=== PATIENT | male | born 1955 | race Caucasian/White ===

== ENCOUNTER → 2019-08-24 08:11 | Outpatient (BNVA) | payer MEDICARE, MEDICAID, SELFPAY | PROVIDERS: Family Provider Internal Medicine; PCP Internal Medicine; Visit Provider Anesthesiology | DX: G89.29 Other chronic pain (principal); M54.2 Cervicalgia; M25.511 Pain in right shoulder; M25.512 Pain in left shoulder | CPT/HCPCS: 99213 ==

== ENCOUNTER → 2019-09-30 08:23 | Outpatient (BNVA) | payer MEDICARE, MEDICAID, SELFPAY | PROVIDERS: Family Provider Internal Medicine; PCP Internal Medicine; Visit Provider Anesthesiology | DX: M54.2 Cervicalgia (principal) | CPT/HCPCS: 62321; J1040 ==

== ENCOUNTER 2019-12-13 13:12 | Outpatient (CLI) | payer MEDICARE, MEDICAID, SELFPAY ==
--- NOTE | 2019-12-13 13:26 | MR_ITS ---
WS: [id number] MRI LUMBAR SPINE NONCONTRAST TECHNIQUE: Sagittal T1, T2 and STIR imaging. Axial T1 and T2 imaging. CLINICAL INFORMATION: G83.4 Cauda equina syndrome COMPARISON: MRI FINDINGS: Mild lumbar curve. No acute compression. No high-grade central canal stenosis. L1-L2: Mild annular bulging with slight effacement of ventral thecal sac. Mild facet arthropathy. Spi nal canal and foramen are patent. L2-L3: Mild annular bulging. Slight narrowing of the subarticular recess bilaterally. Mild bilateral foraminal narrowing. Mild central canal stenosis. Mild facet arthropathy. L3-L4: Mild annular bulging with slight narrowing of the subarticular recess bilaterally. Slight retr olisthesis. Mild to moderate bilateral foraminal narrowing with encroachment on the exiting L3 nerve roots bilaterally left greater than right. Left foraminal protrusion impinges the exiting left L3 ner ve root. L4-L5: Mild disc bulging eccentric to the right with mild central canal stenosis. Impingement sue ing L5 nerve roots bilaterally. Right foraminal protrusion impinges the exiting right L4 nerve root. Smaller left foraminal protrusion with mild left foraminal narrowing. Moderate facet arthropathy. L5-S1: Mild annular bulging. Left eccentric disc bulging with mild left foraminal narrowing. Right fo ramen is patent. Moderate facet arthropathy. Visualized pelvic bony structures: Normal. Paravertebral soft tissues: Normal. Mild spondylitic changes cervical spine with small disc osteophyte protrusions at C3-C6. MR/MR lumbar spine wo con* [id number] IMPRESSION: 1. Mild lumbar curve. No acute compression. No high-grade central canal stenos is. 2. Mild central canal stenosis L4-5 with annular bulging and slight impingemen t traversing L5 nerve roots bilaterally. Bilateral foraminal protrusions at thi s level impinges the exiting L4 nerve roots right greater than left. 3. Prominent left foraminal protrusion L3-4 impinges the exiting left L3 nerve root. Recommend correlation for left L3 nerve root symptoms. Mild right L3-4 f oraminal narrowing with a small right foraminal protrusion. 4. Mild to moderate facet arthropathy L4-L5 and L5-S1.
== END 2019-12-13 13:13 | disposition home or self-care (01) ==
LOC: RADWPI 13:21
PROVIDERS: Family Provider Internal Medicine; PCP Internal Medicine; Visit Provider Registered Nurse
DX: G83.4 Cauda equina syndrome (principal); M48.061 Spinal stenosis, lumbar region without neurogenic claudication; M51.26 Other intervertebral disc displacement, lumbar region; M47.816 Spondylosis without myelopathy or radiculopathy, lumbar region; M47.817 Spondylosis without myelopathy or radiculopathy, lumbosacral region
CPT/HCPCS: 72148

== ENCOUNTER → 2019-12-29 09:23 | Outpatient (BNVA) | payer MEDICARE, MEDICAID, SELFPAY | PROVIDERS: Family Provider Internal Medicine; PCP Internal Medicine; Visit Provider Anesthesiology | DX: M48.062 Spinal stenosis, lumbar region with neurogenic claudication (principal); M54.16 Radiculopathy, lumbar region; M54.2 Cervicalgia; M48.00 Spinal stenosis, site unspecified; Z79.891 Long term (current) use of opiate analgesic | CPT/HCPCS: 99213 ==

== ENCOUNTER → 2020-01-17 08:24 | Outpatient (BNVA) | payer MEDICARE, MEDICAID, SELFPAY | PROVIDERS: Family Provider Internal Medicine; PCP Internal Medicine; Referring Provider Orthopaedic Surgery; Visit Provider Specialist | DX: M54.16 Radiculopathy, lumbar region (principal); G62.9 Polyneuropathy, unspecified; Z79.52 Long term (current) use of systemic steroids | CPT/HCPCS: 82607; 82746; 83921; 84260; 84443; 85651; 86140; 86431; 95886; 95909; 99202; G0463 ==

== ENCOUNTER → 2020-01-20 10:41 | Outpatient (BNVA) | payer MEDICARE, MEDICAID, SELFPAY | PROVIDERS: Family Provider Internal Medicine; PCP Internal Medicine; Visit Provider Anesthesiology | DX: M54.16 Radiculopathy, lumbar region (principal); M48.062 Spinal stenosis, lumbar region with neurogenic claudication | CPT/HCPCS: 62323; J1040; J3490 ==

== ENCOUNTER → 2020-03-06 10:12 | Outpatient (BNVA) | payer MEDICARE, MEDICAID, SELFPAY | PROVIDERS: Family Provider Internal Medicine; PCP Internal Medicine; Visit Provider Orthopaedic Surgery | DX: Z20.828 Contact with and (suspected) exposure to other viral communicable diseases (principal); Z01.812 Encounter for preprocedural laboratory examination | CPT/HCPCS: 87635 ==

== ENCOUNTER → 2020-03-13 12:41 | Outpatient (BNVA) | payer MEDICARE, MEDICAID, SELFPAY | PROVIDERS: Family Provider Internal Medicine; PCP Internal Medicine; Visit Provider Orthopaedic Surgery | DX: Z20.828 Contact with and (suspected) exposure to other viral communicable diseases (principal); M48.062 Spinal stenosis, lumbar region with neurogenic claudication | CPT/HCPCS: 87635 ==

== ENCOUNTER 2020-03-17 05:40 | Day surgery (SDC) | payer MEDICARE, MEDICAID, SELFPAY ==
[2020-03-16 13:41] VITALS: BMI 26.2
[2020-03-17] VITALS (8 sets, daily range): BP systolic 118–137; BP diastolic 71–93; PULSE 68–79; RESP 14–18; TEMP 36.5–36.6; O2SAT 94–98
--- NOTE | 2020-03-17 | XR_ITS ---
WS: [id number] Lumbar spine, AP and lateral C-arm fluoroscopy views, 03/17/2020 Clinical Data: Decompression L4/L5 L5/s1 Comparison: Lumbar spine lateral, 12/09/2012. Findings: Dr. Garcia examined the lumbar spine at the L4-L5 level. XR/XR lumbar spine 2-3V* [id number] Impression: Dr. Garcia examined L4-L5 level.
--- NOTE | 2020-03-17 | SCC_ITS ---
Procedure Done: 1. L4/5 Laminectomy with partial faccetectomy 2. L5/S1 Laminectomy with partial facetectomy 17.9 seconds of fluoroscopic guidance, for a cumulative dose of 8.71 mGy, was provided to Dr. Garcia by the radiology department. C-arm images of the lumbar spine were saved for the patient's permanent record. [facility]
[2020-03-17] MEDS: sodium chloride 0.9% 1,000 ML 30 ML IV (06:14)
--- NOTE | 2020-03-17 06:29 | ANES.PREANE2 ---
Pre-Anesthetic Assessment Pre-Anesthetic Assessment: Height/Weight: Height 1.91 m Weight 95.254 kg Temp Pulse Resp BP Pulse Ox 97.7 F 72 16 137/93 96 03/17/20 06:05 03/17/20 06:05 03/17/20 06:05 03/17/20 06:05 03/17/20 06:05 Preop Diagnosis: lumbar stensosis Proposed Procedure: Operation Date: 03/17/20 07:00 Proposed Procedures p MIS Decompression L4/5 l5/S1 [id number], [id number](Not Applicable) - Juan Garcia DO Familial anesthetic complications: None Was Beta Oli taken within 24 hours: N/A Last intake: Intake Last Liquid Date 03/16/20 Last Liquid Time 19:30 Last Solid Date 03/16/20 Last Solid Time 19:30 Social: Social History: No alcohol and No tobacco Exam: Pre-Anes Outpt Exam: alert, oriented x 3, clear to auscultation bilaterally and regular rate & rhythm Airway: Cervical ROM: WNL MP: 1 Dentition: Other (missing a few) Pulmonary: Pulmonary: Asthma GI: GI: GERD Musc/skel: Musc/skel: Lower Back Pain Comments: cervical neck pain - gets injections Anesthetic Plan: ASA status: 2 Anesthesia: General Risk of > 500 ml blood loss (7ml/kg in children): No Meds/Allergies Current Medications: Current Medications Generic Name Dose Route Start Last Admin Trade Name Freq PRN Reason Stop Dose Admin Sodium Chloride 1,000 mls @ 30 ml s/hr 03/17/20 06:00 03/17/20 06:14 Sodium Chloride 0.9% IV 03/18/20 05:59 30 mls/hr .Q24H KEAGAN Administration PFSH Anesthesia PFSH: Medical History Chronic pain in right shoulder Encounter for long-term use of opiate analgesic Neck pain Opioid contract exists Family History Mother Neck pain Sister Neck pain Brother Neck pain Low back pain Social History Smoking and tobacco status: never smoked Second hand smoke exposure: No Alcohol intake: never History of recent travel: No Data Anesthesia Cardiac Studies: No Data to Display
--- NOTE | 2020-03-17 06:45 | W.PM.OPSUD ---
Surgery/Procedure H&P Update DATE OF PROCEDURE: March 17, 2020 DATE H&P PERFORMED: 02/28/20 H&P UPDATE INFORMATION: I have reviewed H&P completed within last 30 days and I have examined patient prior to procedure PREOP DIAGNOSIS: lumbar stensosis PLANNED PROCEDURE: Operation Date: 03/17/20 07:00 Proposed Procedures p MIS Decompression L4/5 l5/S1 [id number], [id number](Not Applicable) - Juan Garcia DO
--- NOTE | 2020-03-17 08:06 | SUR.OPER ---
Family Notified Of Patient's Status Via Phone.
--- NOTE | 2020-03-17 08:39 | PM.OP ---
Operative Report Date of procedure: March 17, 2020 Pre-op Diagnosis: lumbar stensosis Post-op diagnosis: same Procedure Done: 1. L4/5 Laminectomy with partial faccetectomy 2. L5/S1 Laminectomy with partial facetectomy Surgeon: Juan Garcia Anesthesia: General Estimated blood loss (mL): 10 Condition: stable Disposition: PACU Procedure: 1. L4/5 Laminectomy with partial faccetectomy 2. L5/S1 Laminectomy with partial facetectomy Patient brought to the operative suite placed in the prone position after undergoing anesthesia all areas impingement well-padded patient was prepped and draped in a sterile fashion. Skin incision made over the L4-5 level was confirmed under C-arm guidance dilators passed to the retractors inserted direct visualization of the L4 lamina's had one with a medial aspect of the O45 facet joint. Laminectomies performed using high-speed bur and Kerrison rongeur and curettes. Medial aspect of facet joints taken down the high-speed bur and Kerrisons. Ligamentum flavum was taken down from L4-L5 ligament was significant thickened. Dustin was taken down the lateral recess was opened up using Kerrison rongeurs. The L5 nerve was opened and the L45 facet was taken down to the pedicle. And then the L45 foramen was opened. The tip was tilted and the contralateral ligamentum flavum and lamina were undermined and taken down. Large curette was brought through the L4-5 foramen bilaterally and the L5 nerve was traced around the L5 pedicle bilaterally felt to be adequate decompressed. Attention was then brought to the L5-S1 level again using C arm dilators were passed tubular tract was docked onto the L5 lamina direct visualization of the L5 lamina and L4-5 facet joint. High-speed bur was used to take down the L5 lamina medial aspect of facet joint and then Kerrison [place] and curettes were used to take down the remaining lamina and partial facetectomy was performed ligamentum flavum was taken down from L5-S1 ligament again was significant thickened dura had good repair but both L4-5 and L5 1 spaces. The L5 and S1 nerves were traced the L5 nerve was traced to the L5 5 S1 foramen and the S1 nerve was traced from the pedicle. Attention was then brought to the table tilted in the ligament flavum was taken down the contralateral side and the large curette was then used to trace the S1 and L5 nerve. Wounds irrigated and wounds closed wit Vicryl and Monocryl suture still dressings applied patient transferred to the PACU in stable condition.
--- NOTE | 2020-03-17 08:55 | SUR.PHASEI ---
PT AWAKES BUT REMAINS DROWSY, VSS PT ORAL AIRWAY OUT GOOD RESP NOTED PT IV TO LT HAND PATENT, PT DISCOURAGED FROM, RUBBING HIS FACE, PT SHAKES HEAD NO TO QUESTIONS OF PAIN , NAUSEA, AND COLD.. PT QUICKLY BACK TO SLEEP
--- NOTE | 2020-03-17 09:01 | SUR.PHASEI ---
PT REMAINS DROWSY BUT KEEPS RUBBING AT FACE AND TAKING OFF MASK PT ON RA FOR COMFORT RESP EVEN AND UNLABORED SATS HELD AT 94%
--- NOTE | 2020-03-17 16:24 | ANE.PACU2 ---
Inpatient post-anesthesia follow up: Airway intact: Yes Vital signs: Temperature 98 F Pulse Rate 68 Respiratory Rate 18 Blood Pressure 131/85 Pulse Oximetry 96 Oxygen Delivery Me thod Room Air Oxygen Flow Rate 8 Fraction of Inspir ed Oxygen Hydration adequate: Yes Nausea and vomiting: No Pain level: 4 Mental status: Baseline
== END 2020-03-17 10:30 | disposition home or self-care (01) ==
PROVIDERS: PCP Internal Medicine; Visit Provider Orthopaedic Surgery
PROC: (CPT 63005; principal; 2020-03-17 07:00)
DX: M48.061 Spinal stenosis, lumbar region without neurogenic claudication (principal); J45.909 Unspecified asthma, uncomplicated; K21.9 Gastro-esophageal reflux disease without esophagitis; Z79.891 Long term (current) use of opiate analgesic; G89.29 Other chronic pain; M25.511 Pain in right shoulder
CPT/HCPCS: 63030; 63035; 12345; 72100; 76000; J0690; J2704; J3010; J3490; J7030

== ENCOUNTER → 2020-03-30 08:23 | Outpatient (BNVA) | payer MEDICARE, MEDICAID, SELFPAY | PROVIDERS: PCP Registered Nurse; Visit Provider Anesthesiology | DX: M48.00 Spinal stenosis, site unspecified (principal); Z79.891 Long term (current) use of opiate analgesic | CPT/HCPCS: 62321; J1040 ==

== ENCOUNTER → 2020-03-31 08:09 | Outpatient (BNVA) | payer MEDICARE, MEDICAID, SELFPAY | PROVIDERS: PCP Registered Nurse; Visit Provider Internal Medicine | DX: E11.9 Type 2 diabetes mellitus without complications (principal); E78.5 Hyperlipidemia, unspecified; K75.81 Nonalcoholic steatohepatitis (NASH) | CPT/HCPCS: 80053; 80061; 85025 ==

== ENCOUNTER 2020-04-06 06:41 | Outpatient (CLI) | payer MEDICARE, MEDICAID, SELFPAY ==
--- NOTE | 2020-04-06 07:15 | MR_ITS ---
WS: [id number] MRI CERVICAL SPINE NONCONTRAST TECHNIQUE: Sagittal T1, T2 and STIR imaging. Axial T2, gradient, and fiesta imaging. CLINICAL INFORMATION: M54.2 - Cervicalgia FINDINGS: Straightening of the normal cervical lordosis. Cord signal is normal. Mild disc bulging worse at C4-C 5 C5-C6 and C6-C7. C2-C3: Normal. C3-C4: Mild disc bulging with slight effacement of ventral thecal sac. Tiny central disc osteophyte p rotrusion. Moderate facet arthropathy worse in the right. Mild right greater than left bony foraminal narrowing. C4-C5: Central disc protrusion with slight contact of the cervical cord. Mild central canal stenosis. Moderate facet arthropathy. Mild bilateral foraminal narrowing. C5-C6: Disc osteophyte complex with endplate ridging. Moderate central canal stenosis. Moderate to se lesley right and moderate left bony foraminal narrowing. Moderate facet arthropathy. C6-C7: Disc osteophyte complex with endplate ridging. Mild central canal stenosis. Moderate to severe bilateral bony foraminal narrowing. C7-T1: No significant disc bulging. Osteophytic ridging. Mild left and no significant right foraminal narrowing Visualized brain stem structures: Normal. Prevertebral soft tissues: Normal. MR/MR cervical spin wo con* [id number] IMPRESSION: 1. Straightening of the normal cervical lordosis. Cord signal is normal. 2. Small central disc protrusion C4-5 with slight contact of the cervical cord and mild central canal stenosis. 3. Disc osteophyte complex with endplate ridging results in moderate central c anal stenosis C5-C6. Mild central canal stenosis C6-C7. 4. Moderate to severe bony foraminal narrowing worse at right C5-C6 and bilate ral C6-C7.
== END 2020-04-06 06:42 | disposition home or self-care (01) ==
PROVIDERS: PCP Registered Nurse; Visit Provider Orthopaedic Surgery
DX: M25.78 Osteophyte, vertebrae (principal); M48.02 Spinal stenosis, cervical region; M50.221 Other cervical disc displacement at C4-C5 level
CPT/HCPCS: 72141

== ENCOUNTER → 2020-06-16 09:41 | Outpatient (BNVA) | payer MEDICARE, MEDICAID, SELFPAY | PROVIDERS: PCP Registered Nurse; Visit Provider Orthopaedic Surgery | DX: Z01.812 Encounter for preprocedural laboratory examination (principal) | CPT/HCPCS: 87635 ==

== ENCOUNTER 2020-06-21 08:33 | Day surgery (SDC) | payer MEDICARE, MEDICAID, SELFPAY ==
[2020-06-08 09:56] VITALS: BMI 26.2
--- NOTE | 2020-06-08 11:49 | ANES.PREANE2 ---
Pre-Anesthetic Assessment Pre-Anesthetic Assessment: Height/Weight: Height 1.91 m Weight 95.254 kg Preop Diagnosis: cervical stenosis with radiculopathy Proposed Procedure: Operation Date: 06/21/20 11:30 Proposed Procedures p ACDF C5/6 6/7 M47.12 [id number](Not Applicable) - Juan Garcia, DO Was Beta Oli taken within 24 hours: N/A Was Clonidine taken within 24 hours: N/A Social: Social History: No alcohol and No tobacco Exam: Pre-Anes Outpt Exam: alert, oriented x 3, clear to auscultation bilaterally and regular rate & rhythm Airway: Submandibular: WNL Cervical ROM: Other (Limited) MP: 2 Additional comments: OK dentition Pulmonary: Pulmonary: Asthma GI: GI: GERD Comments: UC Musc/skel: Musc/skel: Lower Back Pain Neuropsych: Neuropsych: Neuropathy Anesthetic Plan: ASA status: 3 Anesthesia: General Risk of > 500 ml blood loss (7ml/kg in children): No PFSH Anesthesia PFSH: Medical History Chronic pain in right shoulder Encounter for long-term use of opiate analgesic Neck pain Opioid contract exists Family History Mother Neck pain Sister Neck pain Brother Neck pain Low back pain Social History Smoking and tobacco status: never smoked Second hand smoke exposure: No Alcohol intake: never History of recent travel: No Data Anesthesia Cardiac Studies: No Data to Display
[2020-06-21] VITALS (9 sets, daily range): BP systolic 126–141; BP diastolic 69–89; PULSE 69–76; RESP 12–20; TEMP 36.1–36.9; O2SAT 92–98
--- NOTE | 2020-06-21 | XR_ITS ---
WS: [id number] Cervical spine, AP and lateral C-arm fluoroscopy views, 06/21/2020 Clinical Data: ACDF Comparison: Cervical spine, 12/09/2012. Findings: There is anterior cervical disc fusion at C5-C7 with disc spacers at C5-C6 and C6-C7. XR/XR cervical spine 3V* [id number] Impression: Anterior cervical disc fusion from C5 through C7.
--- NOTE | 2020-06-21 | SCC_ITS ---
Procedure Done: 1. Anterior diskectomy C5/6 2. Anterior discectomy C6/7 3. Insertion of cage C5/6 4. Insertion of Cage C6/7 5. Instrumentation with anterior plate from C5-C7 6. Use of allograft 19.6 seconds of fluoroscopic guidance, for a cumulative dose of 2.22 mGy, was provided to Dr. Garcia by the radiology department. C-arm images of the cervical spine were saved for the patient's permanent record. [facility]
[2020-06-21] MEDS: sodium chloride 0.9% 1,000 ML 30 ML IV (09:17)
--- NOTE | 2020-06-21 09:23 | P.ANESUD_ITS ---
Pre-Anesthetic Update Pre-Anesthetic Assessment: Date of Surgery/Procedure: 06/21/20 Preop Kimberly gnosis: cervical stenosis with radiculopathy Proposed Procedure: Operation Date: 06/21/20 10:10 Proposed Procedures p ACDF C5/6 6/7 M47.12 [id number](Not Applicable) - Juan Garcia, DO Any changes to Pre-Anesthetic Assessment?: No Last Intake: Intake Last Liquid Date 06/20/20 Last Liquid Time 21:00 Last Solid Date 06/20/20 Last Solid Time 21:00 Vitals: Temperature 98.4 F 06/21/20 08:54 Temperature Source Temporal Artery S can 06/21/20 08:54 Pulse Rate 74 06/21/20 08:54 Pulse Rhythm 06/21/20 08:54 Pulse Strength 3+ Normal 06/21/20 08:54 Respiratory Rate 18 06/21/20 08:54 Blood Pressure 134/82 06/21/20 08:54 Blood Pressure Ratna n 99 06/21/20 08:54 Pulse Oximetry 95 06/21/20 08:54 Oxygen Delivery Me thod 06/21/20 08:54 Exam: Pre-Anes Outpt Exam: alert, oriented x 3, clear to auscultation bilaterally and regular rate & rhythm Cardiac Studies: No Data to Display
[2020-06-21] MEDS: fentaNYL 50 mcg/mL INJ 2mL IVP (10:10)
--- NOTE | 2020-06-21 11:23 | PM.HP ---
Providers/Chief Complaint Primary Care Provider: ODALYS Allen Chief Complaint: ACDF C5/6 6/7 History of Present Illness Richard Boyer is a 65 year old male history of bilateral upper extre,mity numbness bilatral upper extrmioties. failed conservative treatment Review of Systems Narrative: Const: Denies: fever(s) or chills Card: Denies: chest pain or dyspnea on exertion Resp: Denies: dyspnea or productive cough GI: Denies: abdominal pain, nausea or vomiting Musc: Reports: neck pain Skin/Breast: Denies: changes in skin color or dry skin Neuro: Denies: weakness in extremities Psych: Denies: anxiety Nav/Lymph: Denies: easy bruising or easy bleeding Medications/Allergies Home Medications Medication Instructions Recorded Confirmed Last Taken Type ipratropium bromide 42 mcg (0.06 1 spray INTRANASAL TID #15 ml 05/28/19 06/21/20 1 Day Ago Rx %) nasal spray ~06/20/20 simvastatin 40 mg tablet 40 mg PO DAILY #90 tab 09/30/19 06/21/20 1 Day Ago Rx ~06/20/20 fluticasone 500 mcg-salmeterol 50 1 inh INHALATION BID #60 each 10/12/19 06/08/20 03/16/20 Rx mcg/dose blistr powdr for inhalation albuterol sulfate 90 mcg/actuation 1 inh INHALATION QID PRN #6.7 gm 12/23/19 06/21/20 1 Day Ago Rx aerosol inhaler ~06/20/20 mesalamine 1.2 gram tablet,delayed See Rx Instructions .ROUTE 02/10/20 06/21/20 1 Day Ago Rx release .COMPLEX #360 each ~06/20/20 valacyclovir 1 gram tablet 2,000 mg PO DAILY PRN #10 tab 02/25/20 06/21/20 1 Day Ago Rx ~06/20/20 hydrocodone-acetaminophen 1 - 2 tab PO .Q4-6H #40 tab 03/17/20 06/08/20 Unknown Rx tizanidine 4 mg tablet 4 - 8 mg PO .at bedtime PRN #90 tab 04/16/20 06/21/20 1 Day Ago Rx ~06/20/20 pantoprazole 40 mg tablet,delayed 40 mg PO DAILY #30 tab 05/16/20 06/21/20 1 Day Ago Rx release ~06/20/20 [id number] Bone growth stimulator #1 ea 06/06/20 Unknown Rx diphenoxylate-atropine [Lomotil] tab 06/08/20 1 Day Ago History ~06/20/20 Allergies Allergy/AdvReac Type Severity Reaction Status Date / Time morphine Allergy ADR-Halluci Verified 06/08/20 09:49 nating PFSH Acute PFSH: Medical History Chronic pain in right shoulder Encounter for long-term use of opiate analgesic Neck pain Opioid contract exists Family History Mother Neck pain Sister Neck pain Brother Neck pain Low back pain Social History Smoking and tobacco status: never smoked Second hand smoke exposure: No Alcohol intake: never History of recent travel: No Vitals/I&O/Wt Last Vital Signs Temp 98.4 F 06/21/20 08:54 Pulse 74 06/21/20 08:54 Resp 18 06/21/20 08:54 BP 134/82 06/21/20 08:54 Pulse Ox 95 06/21/20 08:54 Physical Exam Narrative: EXAM NARRATIVE: EXAM NARRATIVE: CONSTITUTIONAL: The patient is normal appearing, well groomed, cooperative and in no apparent distress. GENERAL: Patient in no acute distress. Well nourished. CARDIAC: Regular rate and rhythm. CHEST: Normal inspirator effort, normal respiratory rate. ABDOMEN: Soft and non-tender. SKIN: Clear, warm and intact. NEURO?PSYCH: The patient is alert and oriented to person, place and time. NEUROVASCULAR: Upper Extremity Sensory - SILT. Motor Strength: Shoulder abduction C5: 5/5; Wrist extension C6: 5/5; Elbow extension C7: 5/5; Hand Paver Layer C8: 5/5; Finger abduction T1: 5/5. Radial/ Ulnar/ Median in intact Lower Extremity Sensory - SILT. Motor Strength: Hip flexion L2/3; Ant/inner thigh: 5/5; Hip adduction L2/3: 5/5; Knee extension L4 Lat thigh: 5/5; Toe dorsiflexion L5: 5/5; Ankle dorsiflexion L5/ S1: 5/5; Plantar flexion S1: 5/5. DTR: Triceps 2+; Brachioradialis 2+; Patellar 2+; Achilles 2+. MUSCULOSKELETAL: UPPER EXTREMITIES: The patient had full active ROM in fingers, wrist, elbow, and shoulder. The patient demonstrated ability to fully flex/extend/abduct/adduct fingers, make ok sign, cross 2nd/3rd digits, extend 1st digit fully.. Radial pulse 2+, CR<2 seconds. LOWER EXTREMITIES: Pt has full, active ROM of toes, ankle, knee, and hip. Dorsalis pedis & posterior tibialis pulses 2+, CR<2 seconds. SPINE: Skin warm, dry, intact. A&P Assessment and plan (1) Cervical stenosis of spinal canal: C5/6 And C6/7 ACDF Status: Acute Attestations Medical Necessity Statement*: failed conservative treatment Coding Level of Care Code Acute Director Export for Niranjan Miller Diagnoses Cervical stenosis of spinal canal M48.02
--- NOTE | 2020-06-21 11:26 | W.PM.OPSUD ---
Surgery/Procedure H&P Update DATE OF PROCEDURE: June 21, 2020 DATE H&P PERFORMED: 06/21/20 PREOP DIAGNOSIS: cervical stenosis with radiculopathy PLANNED PROCEDURE: Operation Date: 06/21/20 10:10 Proposed Procedures p ACDF C5/6 6/7 M47.12 [id number](Not Applicable) - Juan Garcia DO
[2020-06-21] MEDS: thrombin 5,000 unit SDV 5000 UNIT XX (12:56)
--- NOTE | 2020-06-21 14:56 | PM.OP ---
Operative Report Date of procedure: June 21, 2020 Pre-op Diagnosis: cervical stenosis with radiculopathy Post-op diagnosis: same Procedure Done: 1. Anterior diskectomy C5/6 2. Anterior discectomy C6/7 3. Insertion of cage C5/6 4. Insertion of Cage C6/7 5. Instrumentation with anterior plate from C5-C7 6. Use of allograft Surgeon: Juan Gacria Anesthesia: General Estimated blood loss (mL): 50 Condition: stable Disposition: PACU Procedure: 1. Anterior diskectomy C5/6 2. Anterior discectomy C6/7 3. Insertion of cage C5/6 4. Insertion of Cage C6/7 5. Instrumentation with anterior plate from C5-C7 6. Use of allograft The patient was taken to the operating room, where he underwent general endotracheal anesthesia without complications. He was then positioned supine on the operating table, and all areas of impingement were well padded. The arms were carefully padded and tucked at his sides. A roll was placed between the shoulder blades.. An x-ray was done to determine the appropriate level for the skin incision. The entire neck was then sterilely prepped and draped in the usual fashion. Neuromonitoring was attached prior to prepping. A transverse skin incision was made and carried down to the platysma muscle. This was then split in line with its fibers. Blunt dissection was carried down medial to the carotid sheath and lateral to the trachea and esophagus until the anterior cervical spine was visualized. A needle was placed into a disc and an x-ray was done to determine its location. The longus colli muscles were then elevated bilaterally with the electrocautery unit. Self-retaining retractors were placed deep to the longus colli muscle. Attention was brought to the C5/6 level that was confirmed on x-ray. A caspar pin was placed into the C5 vertebrae and the C6 vertebrae. The disk space was then distracted. The microscope was then brought in. A radical anterior discectomies were performed at C5/6. This included complete removal of the anterior annulus, nucleus, and posterior annulus. The posterior longitudinal ligament was removed as were the posterior osteophytes. Foraminotomies were then accomplished bilaterally. This was done using a high speed mani, kerrison rongeurs and curretes Once all of this was accomplished, the curved currette was used to check for any residual compression. The central canal was wide open as were the foramen. A high-speed bur was used to remove the cartilaginous endplates above and below the interspace. Bleeding cancellous bone was exposed. The disc space were measured and appropriate size cage were placed sterilely onto the field. Allograft graft was packed into the cages. The cage was then placed and there was good juxtaposition against the bleeding decorticated surfaces and good distraction of each interspace. Attention was brought to the next interspace. Attention was brought to the C6/7 level that was confirmed on x-ray. A caspar pin was placed into the C6 vertebrae and the C7 vertebrae. The disk space was then distracted. The microscope was then brought in. A radical anterior discectomies were performed at C6/7. This included complete removal of the anterior annulus, nucleus, and posterior annulus. The posterior longitudinal ligament was removed as were the posterior osteophytes. Foraminotomies were then accomplished bilaterally. This was done using a high speed mani, kerrison rongeurs and curretes Once all of this was accomplished, the curved currette was used to check for any residual compression. The central canal was wide open as were the foramen. A high-speed bur was used to remove the cartilaginous endplates above and below the interspace. Bleeding cancellous bone was exposed. The disc space were measured and appropriate size cage were placed sterilely onto the field. Allograft graft was packed into the cages. The cage was then placed and there was good juxtaposition against the bleeding decorticated surfaces and good distraction of each interspace. Attention was brought to the next interspace The Talbott pins were removed. Bone wax was used to prevent any bleeding from occurring at the pin sites. The appropriate size anterior cervical locking plate was chosen and bent into gentle lordosis. Two screws were then placed into each of the vertebral bodies at C5,C6,C7. There was excellent purchase. A final x-ray was done confirming good position of the hardware and Cages. The locking screws were then applied, also with excellent purchase. Following a final copious irrigation, there was good hemostasis and no dural leaks. The carotid pulse was strong. The wounds were then closed in layers using 2-0 Vicryl suture for the platysma muscle, 2-0 Vicryl suture for the subcutaneous tissue, and 4-0 monocryl suture in a subcuticular skin closure. Glue was placed followed by application of a sterile dressing. The drain was hooked to bulb suction. A soft collar was applied. The patient was then carefully returned to the supine position on his hospital bed where he was reversed and extubated and taken to the recovery room having tolerated the procedure well.
--- NOTE | 2020-06-21 15:38 | PC.NURSE ---
PT RATING PAIN A 10/10 VERBALLY. PER [facility] RATING 5/5, PT DOZING OFF AND ON.
--- NOTE | 2020-06-21 15:50 | ANE.PACU2 ---
Inpatient post-anesthesia follow up: Airway intact: Yes Vital signs: Temperature 97 F Pulse Rate 71 Respiratory Rate 18 Blood Pressure 130/75 Pulse Oximetry 96 Oxygen Delivery Me thod Room Air Oxygen Flow Rate 6 Fraction of Inspir ed Oxygen Hydration adequate: Yes Nausea and vomiting: No Pain level: 3 Mental status: Baseline
[2020-06-21] MEDS: HYDROcodone-acetaminophen 5-325 mg Tablet 2 TAB PO (15:56)
== END 2020-06-21 16:44 | disposition home or self-care (01) ==
PROVIDERS: PCP Registered Nurse; Visit Provider Orthopaedic Surgery
PROC: 0RB30ZZ Excision of Cervical Vertebral Disc, Open Approach (ICD-10-PCS; CPT 22551; principal; 2020-06-21 10:10)
DX: M48.02 Spinal stenosis, cervical region (principal); G89.29 Other chronic pain; M54.2 Cervicalgia; Z79.891 Long term (current) use of opiate analgesic; M25.511 Pain in right shoulder
CPT/HCPCS: 20930; 22551; 22552; 22845; 22853; 72040; 76000; C1713; C9359; J0330; J0690; J1100; J2405; J2704; J3010; J3490; J7030

== ENCOUNTER 2020-07-27 16:07 | Outpatient (CLI) | payer MEDICARE, MEDICAID, SELFPAY ==
--- NOTE | 2020-07-27 16:45 | MR_ITS ---
WS: [id number] MRI RIGHT SHOULDER NONCONTRAST TECHNIQUE: Sagittal T2, coronal T1, T2 and proton density imaging. Axial gradient PDE imaging. CLINICAL INFORMATION: M25.511 - Pain in right shoulder COMPARISON: None. FINDINGS: Advanced degenerative arthritis AC joint with synovial thickening and edema. Mild downsloping of the acromion with mild narrowing of the subacromial space. Normal supraspinatus. Normal infraspinatus. No rmal teres minor. Normal subscapularis tendon. No significant rotator cuff tears. Normal biceps tendon in the bicipital groove. Subchondral cystic degenerative change along the bicipi yajaira groove medially. Small cyst measures 6 mm. Normal biceps labral anchor. Normal intra-articular bi ceps tendon. Small lobulated ganglion cyst along the suprascapular notch measuring 13 mm. MR/MR shoulder RT wo con* [id number] IMPRESSION: 1. Advanced degenerative arthritis at the AC joint with synovial thickening an d edema. Mild downsloping of the acromion. 2. Rotator cuff is intact. No rotator cuff tears. 3. Normal biceps tendon in the bicipital groove. Small subchondral cyst along the medial rim of the bicipital groove measuring 6 mm. 4. Small lobulated ganglion cyst along the suprascapular notch. No atrophy of the supraspinatus or infraspinatus. 5. No other significant findings.
== END 2020-07-27 16:08 | disposition home or self-care (01) ==
LOC: RADSHAW 16:11
PROVIDERS: PCP Registered Nurse; Visit Provider Orthopaedic Surgery
DX: M25.511 Pain in right shoulder (principal); G89.29 Other chronic pain; M13.811 Other specified arthritis, right shoulder; M67.411 Ganglion, right shoulder
CPT/HCPCS: 73030; 73221

== ENCOUNTER → 2020-08-03 08:00 | Outpatient (BNVA) | payer MEDICARE, MEDICAID, SELFPAY | PROVIDERS: PCP Registered Nurse; Visit Provider Orthopaedic Surgery | DX: M25.511 Pain in right shoulder (principal); G89.29 Other chronic pain; Z48.89 Encounter for other specified surgical aftercare; Z98.1 Arthrodesis status | CPT/HCPCS: 72040 ==

== ENCOUNTER → 2020-11-01 10:57 | Outpatient (BNVA) | payer MEDICARE, MEDICAID, SELFPAY | PROVIDERS: PCP Registered Nurse; Visit Provider Registered Nurse | DX: Z01.89 Encounter for other specified special examinations (principal); R20.0 Anesthesia of skin; R20.2 Paresthesia of skin; R45.84 Anhedonia; E78.5 Hyperlipidemia, unspecified; Z79.899 Other long term (current) drug therapy | CPT/HCPCS: 82607; 82670; 82746; 83001; 83002; 84153; 84402; 84443 ==

== ENCOUNTER → 2020-12-11 11:15 | Outpatient (BNVA) | payer MEDICARE, MEDICAID, SELFPAY | PROVIDERS: PCP Registered Nurse; Visit Provider Nurse Practitioner Family | DX: Z20.822 Contact with and (suspected) exposure to COVID-19 (principal) | CPT/HCPCS: 87426 ==

== ENCOUNTER → 2021-01-04 08:00 | Outpatient (BNVA) | payer MEDICARE, MEDICAID, SELFPAY | PROVIDERS: PCP Registered Nurse; Visit Provider Orthopaedic Surgery | DX: M54.2 Cervicalgia (principal); Z48.89 Encounter for other specified surgical aftercare | CPT/HCPCS: 72040 ==

== ENCOUNTER → 2021-03-26 13:46 | Outpatient (BNVA) | payer MEDICARE, MEDICAID, SELFPAY | PROVIDERS: PCP Registered Nurse; Referring Provider Orthopaedic Surgery; Visit Provider Specialist | DX: Z11.52 Encounter for screening for COVID-19 (principal); Z20.822 Contact with and (suspected) exposure to COVID-19; G62.9 Polyneuropathy, unspecified | CPT/HCPCS: 87426; 99214; 99215 ==

== ENCOUNTER → 2021-04-18 14:47 | Outpatient (BNVA) | payer MEDICARE, MEDICAID, SELFPAY | PROVIDERS: PCP Registered Nurse; Visit Provider Specialist | DX: G62.89 Other specified polyneuropathies (principal) | CPT/HCPCS: 95909 ==

== ENCOUNTER → 2021-06-04 13:56 | Outpatient (BNVA) | payer MEDICARE, MEDICAID, SELFPAY | PROVIDERS: PCP Registered Nurse; Visit Provider Specialist | DX: G62.9 Polyneuropathy, unspecified (principal) | CPT/HCPCS: 99214 ==

== ENCOUNTER 2021-07-05 08:41 | Outpatient (CLI) | payer MEDICARE, MEDICAID, SELFPAY ==
--- NOTE | 2021-07-05 08:50 | CT_ITS ---
WS: [id number] CT ABDOMEN PELVIS TECHNIQUE: Noncontrast CT of the abdomen and pelvis with coronal and sagittal reformatted images. CLINICAL INFORMATION: G62.9 - Polyneuropathy, unspecified COMPARISON: [address] DLP: 1351.[address] scans at [facility] use at least one of these dose optimization techniques: automated e xposure control; mA and/or kV adjustment per patient size (includes targeted exams where dose is matc hed to clinical indication); or iterative reconstruction. FINDINGS: Lung bases are well aerated. Noncontrast liver is normal. Mild hepatomegaly. Cholelithiasis. No gallb ladder wall thickening or pericholecystic fluid. Normal noncontrast spleen. Noncontrast pancreas appe ars normal. Adrenal glands appear normal. Normal GE junction. No hydronephrosis in either kidney. Tin y nonobstructing RIGHT calyceal tip calculi. No hydronephrosis in either kidney. Bladder diverticulum versus ureterocele near the entrance of the RIGHT UVJ. This measures approximate ly 2.4 x 1.7 CM. This appears to be separate from the distal RIGHT ureter but closely abuts the urete r and bladder. Penile implant reservoir in the RIGHT lower anterior pelvis. Penile reservoir appears intact. Compone nts appear intact. Implants appear intact where visualized. Fat-containing umbilical hernia. Enlarged prostate measuring 4.0 x 4.9 cm calcification. Correlation PSA. Thickening of the seminal vesicles bilaterally. Mild bladder wall thickening likely due to bladd er outlet obstruction. No periaortic or pelvic lymphadenopathy. No inguinal lymphadenopathy. CT/CT abdomen pelvis wo con [id number] IMPRESSION: 1. Cholelithiasis. This can be further evaluated with ultrasound. No gallbladd er wall thickening or pericholecystic fluid. 2. Mild hepatomegaly. 3. RIGHT dorsal bladder diverticulum or ureterocele described above. This abut s the RIGHT UVJ and distal RIGHT ureter but appears separate from the ureter. T his can be further evaluated with CT urogram with delayed imaging. 4. No hydronephrosis in either kidney. 5. Penile implant reservoir RIGHT lower pelvis appears intact. Corpus cavernos a components appear intact. 6. Enlarged prostate measuring 4.0 x 4.9 cm with calcification. Recommend juli elation PSA. Mild thickening of the seminal vesicles bilaterally. Suggestion of early bladder wall thickening likely due to bladder outlet obstruction.
== END 2021-07-05 08:42 | disposition home or self-care (01) ==
LOC: RAD 08:45
PROVIDERS: PCP Registered Nurse; Visit Provider Specialist
DX: G62.9 Polyneuropathy, unspecified (principal); R20.2 Paresthesia of skin; K80.20 Calculus of gallbladder without cholecystitis without obstruction; R16.0 Hepatomegaly, not elsewhere classified; N40.0 Benign prostatic hyperplasia without lower urinary tract symptoms
CPT/HCPCS: 74176

== ENCOUNTER → 2021-07-16 09:06 | Outpatient (BNVA) | payer MEDICARE, MEDICAID, SELFPAY | PROVIDERS: PCP Registered Nurse; Visit Provider Registered Nurse | DX: E78.5 Hyperlipidemia, unspecified (principal); G62.9 Polyneuropathy, unspecified; Z00.00 Encounter for general adult medical examination without abnormal findings | CPT/HCPCS: 80053; 80061; 82306; 82607; 85025; G0103 ==

== ENCOUNTER 2021-07-18 08:35 | Outpatient (CLI) | payer MEDICARE, MEDICAID, SELFPAY ==
--- NOTE | 2021-07-18 09:30 | MR_ITS ---
WS: [id number] MRI PELVIS WITHOUT GADOLINIUM ENHANCEMENT. INDICATION: Numbness and pelvis and rectum after penile implant TECHNIQUE: Coronal T1, coronal STIR, axial T1, axial T2, sagittal T2 fat sat FINDINGS: Enlarged prostate measuring 4.0x4.9 cm with calcifications. Thickening of the seminal vesic les bilaterally. Recommend correlation PSA. Mild diffuse bladder wall thickening likely due to bladde r outlet obstruction. Visualized sacrum and coccyx appears normal. Distal sigmoid colon and rectum ar e normal in appearance. Normal normal perirectal fat. Penile implant reservoir RIGHT lower pelvis appears intact. Corpus cavernosa Implant components appea r intact and normal position. Again seen is the suspected dorsal RIGHT bladder diverticulum with a ti ny connecting neck. Diverticulum measures 2.2 x 1.8 cm with small connecting neck measures 3 mm Normal bone marrow signal in the pelvis and sacrum. Normal bone marrow signal in the iliac wings. Mil d degenerative arthritis both hips with mild joint space narrowing. No subchondral edema. Normal pubi c rami. No pelvic or inguinal lymphadenopathy. Minimal disc bulging L4-L5. MR/MR pelvis wo con* [id number] IMPRESSION: 1. Normal distal sigmoid colon and rectum. Normal perirectal fat. 2. Penile implant and implant reservoir in the RIGHT lower quadrant appear int act. 3. Enlarged prostate with diffuse bladder wall thickening likely due to bladde r outlet obstruction. Correlation PSA. 4. Dorsal RIGHT bladder diverticulum measuring 2.2 x 1.8 cm with a tiny narrow neck connection to the bladder. 5. Normal bone marrow signal in the pelvis and sacrum.
== END 2021-07-18 08:36 | disposition home or self-care (01) ==
PROVIDERS: PCP Registered Nurse; Visit Provider Specialist
DX: G58.8 Other specified mononeuropathies (principal); R20.0 Anesthesia of skin; Z96.0 Presence of urogenital implants; N40.0 Benign prostatic hyperplasia without lower urinary tract symptoms; N32.3 Diverticulum of bladder
CPT/HCPCS: 72195

== ENCOUNTER → 2021-08-29 07:39 | Outpatient (BNVA) | payer MEDICARE, MEDICAID, SELFPAY | PROVIDERS: PCP Registered Nurse; Visit Provider Orthopaedic Surgery | DX: M19.011 Primary osteoarthritis, right shoulder (principal); M67.411 Ganglion, right shoulder | CPT/HCPCS: 99213 ==

== ENCOUNTER → 2021-11-14 12:29 | Outpatient (BNVA) | payer MEDICARE, MEDICAID, SELFPAY | PROVIDERS: PCP Registered Nurse; Visit Provider Podiatrist Foot & Ankle Surgery | DX: M72.2 Plantar fascial fibromatosis (principal); M54.16 Radiculopathy, lumbar region | CPT/HCPCS: 73630; 99203 ==

== ENCOUNTER → 2021-11-15 10:10 | Outpatient (BNVA) | payer MEDICARE, MEDICAID, SELFPAY | PROVIDERS: PCP Registered Nurse; Visit Provider Orthopaedic Surgery | DX: M48.062 Spinal stenosis, lumbar region with neurogenic claudication (principal); Z98.1 Arthrodesis status | CPT/HCPCS: 99214 ==

== ENCOUNTER → 2021-12-05 09:43 | Outpatient (BNVA) | payer MEDICARE, MEDICAID, SELFPAY | PROVIDERS: PCP Registered Nurse; Visit Provider Specialist | DX: G62.9 Polyneuropathy, unspecified (principal); G58.8 Other specified mononeuropathies; M43.26 Fusion of spine, lumbar region | CPT/HCPCS: 99214 ==

== ENCOUNTER 2021-12-28 11:05 | Outpatient (CLI) | payer MEDICARE, MEDICAID, SELFPAY ==
--- NOTE | 2021-12-28 11:45 | MR_ITS ---
WS: [id number] MRI BRAIN WITHOUT CONTRAST HISTORY: M54.16 - Radiculopathy, lumbar region COMPARISON: None available. TECHNIQUE: Diffusion imaging, multiplanar T1, T2 and FLAIR imaging obtained. No evidence for acute infarct or hemorrhage. Holliday-white matter differentiation is normal. Significant progression of T2 and FLAIR signal abnormality throughout the white matter beginning at t he vertex and extending around the ventricles. Numerous subcortical and periventricular white matter lesions. Confluent white matter disease surrounding the occipital horns. No infarct. Ventricles and extra-axial spaces are normal. No inferior displacement of cerebellar tonsils. The sella turcica and pituitary gland are unremarkabl e. Dural venous sinuses and eagle of [place] demonstrate no abnormality on this unenhanced studies. Paranasal sinuses: Mild ethmoid air cell disease. No air-fluid levels. Mild mucoperiosteal thickening in the LEFT maxillary sinus. Mastoid air cells: Normal. Calvarium and scalp: Intact. MR/MR head wo con* [id number] IMPRESSION: 1. No acute infarct or hemorrhage. 2. Significant progression of T2 and FLAIR signal hyperintensities likely from small vessel ischemic disease throughout the white matter since 05/06/2014. Add itional etiologies are to consider are vasculitis, hypertension, diabetes and d emyelination although thought less likely. 3. No interval infarct.
== END 2021-12-28 11:06 | disposition home or self-care (01) ==
LOC: RAD 11:08
PROVIDERS: PCP Registered Nurse; Visit Provider Specialist
DX: M54.16 Radiculopathy, lumbar region (principal)
CPT/HCPCS: 70551

== ENCOUNTER 2021-12-28 11:05 | Outpatient (CLI) | payer MEDICARE, MEDICAID, SELFPAY ==
--- NOTE | 2021-12-28 13:00 | MR_ITS ---
WS: [id number] MRI CERVICAL SPINE NONCONTRAST HISTORY: numbness, tingling, pain COMPARISON: 04/06/2020 Technique: Multiplanar, multisequence noncontrast imaging of the cervical spine. New since the prior examination is an anterior cervical fusion at C5-C7. Mild straightening of the no rmal cervical lordosis with reversal at C5-6. Signal within the cervical cord is normal. Visualized posterior fossa is unremarkable. Craniocervical junction, C1 and C2 relationship, odontoid process and soft tissues are normal. C2-C3: Normal. C3-C4: Small central disc protrusion. Mild annular disc bulging. Mild facet joint arthritis greatest on the RIGHT. Very mild bilateral foraminal narrowing due to osteophyte disease. C4-C5: Diffuse annular disc bulging with a moderate central disc protrusion. Bilateral facet joint ar thritis. Disc contacts but does not displace the ventral cervical cord. Mild central and bilateral fo raminal stenosis. C5-C6: Diffuse osteophytic ridging encroaches upon the ventral thecal sac and into the foramina. Mild central stenosis with moderate foraminal stenosis. C6-C7: Mild osteophytic ridging. Small osteophytes project into the foramina bilaterally. Very mild c entral stenosis with moderate foraminal stenosis. Mild facet disease. C7-T1: Normal. Paraspinal soft tissue are normal. MR/MR cervical spin wo con* [id number] IMPRESSION: 1. Interval anterior cervical fusion from C5 to C7 since 04/06/2020. 2. Moderate central disc protrusion at C4-5 contacts but does not deform the v entral thecal sac. Mild central and bilateral foraminal stenosis. 3. Mild central and moderate foraminal stenosis at C5-6 and C6-7 due to osteop hytic ridging and facet disease. 4. Mild foraminal narrowing at C3-4 with a central disc protrusion, unchanged.
== END 2021-12-28 11:06 | disposition home or self-care (01) ==
LOC: RAD 11:08
PROVIDERS: PCP Registered Nurse; Visit Provider Orthopaedic Surgery
DX: R20.0 Anesthesia of skin (principal); R20.2 Paresthesia of skin; Z98.1 Arthrodesis status; M50.221 Other cervical disc displacement at C4-C5 level; M50.21 Other cervical disc displacement, high cervical region; M48.02 Spinal stenosis, cervical region; M25.78 Osteophyte, vertebrae; M54.16 Radiculopathy, lumbar region
CPT/HCPCS: 70551; 72141; 72146; 72148

== ENCOUNTER 2021-12-28 11:05 | Outpatient (CLI) | payer MEDICARE, MEDICAID, SELFPAY ==
--- NOTE | 2021-12-28 14:30 | MR_ITS ---
WS: [id number] MRI LUMBAR SPINE NONCONTRAST. HISTORY: post op/back pain/numbness COMPARISON: 12/13/2019 TECHNIQUE: Sagittal and axial multisequence imaging is submitted. Normal posterior lumbar alignment. No marrow edema or fracture. Mild disc space narrowing and desiccation at L5-S1. No fractures. Conus terminates normally at L1-2 disc level. L1-L2: Mild bilateral facet joint arthritis and foraminal narrowing. L2-L3: Mild annular disc bulge. Mild narrowing of the subarticular recesses and foramina predominantl y due to facet and ligamentum flavum arthritis. Small amount of fluid in the facet joints. Mild centr al and foraminal stenosis. L3-L4: Mild osteophytic ridging and annular disc bulging. Moderate ligamentum flavum and facet arthri tis. Mild central stenosis. Moderate bilateral subarticular recess and foraminal stenosis. Encroachme nt upon the exiting L3 nerve roots. L4-L5: Mild annular disc bulging and osteophytic ridging. Ligamentum flavum and facet disease is mode rate. Small central disc protrusion. Moderate central canal stenosis. Moderate to severe bilateral fo raminal stenosis. Greater stenosis involving the LEFT foramen with contact on both the L4 and L5 nerv e roots. Complete effacement of fat within the LEFT foramen. L5-S1: Mild disc bulging. Mild encroachment upon the S1 nerve roots but no displacement. Mild bilater al foraminal stenosis. Paravertebral soft tissues are normal. MR/MR lumbar spine wo con* [id number] IMPRESSION: 1. Multilevel facet and ligamentum flavum arthritis. Mild progression since . 2. Moderate central stenosis at L4-5 with a central disc protrusion. 3. Moderate to severe bilateral foraminal stenosis at L4-5, greatest on the LE FT with complete effacement of fat in the LEFT foramen. Most significant contac t on the LEFT L4 and L5 nerve roots. 4. Mild central and foraminal stenosis at L2-3. 5. Moderate bilateral subarticular recess and foraminal stenosis at L3-4. Most significant encroachment upon the exiting L3 nerve roots. 6. Mild bilateral foraminal stenosis L5-S1.
== END 2021-12-28 11:06 | disposition home or self-care (01) ==
LOC: RAD 11:08
PROVIDERS: PCP Registered Nurse; Visit Provider Orthopaedic Surgery
DX: M48.062 Spinal stenosis, lumbar region with neurogenic claudication (principal); M54.16 Radiculopathy, lumbar region; Z98.890 Other specified postprocedural states; R20.0 Anesthesia of skin; M47.896 Other spondylosis, lumbar region; M48.061 Spinal stenosis, lumbar region without neurogenic claudication; M48.07 Spinal stenosis, lumbosacral region; M51.26 Other intervertebral disc displacement, lumbar region
CPT/HCPCS: 72148

== ENCOUNTER 2021-12-28 11:05 | Outpatient (CLI) | payer MEDICARE, MEDICAID, SELFPAY ==
--- NOTE | 2021-12-28 13:45 | MR_ITS ---
WS: [id number] MRI THORACIC SPINE noncontrast HISTORY: back pain/numbness COMPARISON: None available. TECHNIQUE: Multiplanar sequences are performed in sagittal and axial planes. Mild curvature thoracic spine with normal posterior alignment. Disc spaces are mildly narrowed. No ma rrow edema or fracture. Signal within the cord is normal. T1-2: Mild foraminal narrowing. T2-3: Mild bilateral foraminal narrowing and facet arthritis. T3-4: Facet joint arthritis resulting in moderate bilateral foraminal stenosis. No central stenosis. T4-5: Moderate facet joint arthritis and foraminal stenosis. T5-6: Mild facet arthritis and foraminal stenosis. T6-7: Moderate facet joint arthritis and bilateral foraminal stenosis. T7-8: Bilateral foraminal stenosis and mild facet arthritis. T8-9: Moderate to severe bilateral foraminal stenosis and facet arthritis. T9-10: Moderate to severe bilateral foraminal stenosis and facet arthritis. T10-11: Mild bilateral facet arthritis and stenosis. T11-12: Normal. Paravertebral soft tissues are negative. MR/MR thoracic spin wo con* [id number] IMPRESSION: 1. No significant central canal stenosis or disc protrusions. 2. No thoracic spine fracture. 3. Multilevel facet joint arthritis and foraminal narrowing as above. Most sig nificant foraminal stenosis at T6-7, T8-9 and T10-11.
== END 2021-12-28 11:06 | disposition home or self-care (01) ==
LOC: RAD 11:08
PROVIDERS: PCP Registered Nurse; Visit Provider Orthopaedic Surgery
DX: M54.6 Pain in thoracic spine (principal); R20.0 Anesthesia of skin; M48.04 Spinal stenosis, thoracic region; M47.814 Spondylosis without myelopathy or radiculopathy, thoracic region; M48.062 Spinal stenosis, lumbar region with neurogenic claudication; M54.16 Radiculopathy, lumbar region; Z98.890 Other specified postprocedural states; M47.896 Other spondylosis, lumbar region; M48.061 Spinal stenosis, lumbar region without neurogenic claudication; M48.07 Spinal stenosis, lumbosacral region; M51.26 Other intervertebral disc displacement, lumbar region
CPT/HCPCS: 72146

== ENCOUNTER 2021-12-31 09:05 | Day surgery (SDC) | payer MEDICARE, MEDICAID, SELFPAY ==
[2021-12-27 12:19] VITALS: BMI 26.2
--- NOTE | 2021-12-31 07:48 | W.PM.OPSFHP ---
Same Day Surgery H&P Indication for Procedure/HPI DATE OF PROCEDURE: December 31, 2021 CHIEF COMPLAINT/INDICATIONFOR SURGICAL PROCEDURE: Dysphagia and UC PREOP DIAGNOSIS: cervical stenosis with radiculopathy PLANNED PROCEDURE: Operation Date: 12/31/21 11:00 Proposed Procedures p Colonoscopy 39901 Z12.11(Not Applicable) - Crow Knowles MD Medications/Allergies* Allergies/Adverse Reactions Allergy/AdvReac Type Severity Reaction Status Date / Time morphine Allergy ADR-Halluci Verified 12/05/21 10:06 nating Pertinent History/Comorbid Conditions* Medical History (Updated 12/05/21 @ 18:19 by Kaya Avila MD) Asthma Chronic pain in right shoulder Colitis Encounter for long-term use of opiate analgesic Encounter for narcotic contract discussion Neck pain Opioid contract exists Surgical History (Updated 11/02/20 @ 12:07 by Apurva Blas DO) History of back surgery History of colonoscopy History of neck surgery History of penile implant History of vasectomy Family History (Updated 06/09/19 @ 09:12 by Delmi Tanner RN) Low back pain Brother Neck pain Mother Sister Brother Social History Smoking and tobacco status: never smoked Second hand smoke exposure: No Alcohol intake: never History of recent travel: No Pertinent Exam Findings alert, oriented x 3, clear to auscultation bilaterally, regular rate & rhythm, operative site marked and procedure specific exam findings Recommendations Surgery/Procedure today Coding Level of Care Code Acute 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
[2021-12-31 09:42] VITALS: BP 135/83; PULSE 67; RESP 18; TEMP 36.2; O2SAT 96
[2021-12-31] MEDS: sodium chloride 0.9% 1,000 ML 30 ML IV (09:50)
--- NOTE | 2021-12-31 09:58 | ANES.PREANE2 ---
Pre-Anesthetic Assessment Height/Weight: Height 1.91 m Weight 95.254 kg Temp Pulse Resp BP Pulse Ox O2 Del Method 97.2 F L 67 18 135/83 96 12/31/21 09:42 12/31/21 09:42 12/31/21 09:42 12/31/21 09:42 12/31/21 09:42 12/31/21 09:42 Preop Diagnosis: UC and Dysphagia Operation Date: 12/31/21 11:00 Proposed Procedures p Colonoscopy 80445 Z12.11 egd w/bougie [id number] K51.30,R13.10(Not Applicable) - Crow Knowles MD s EGD Dilation W/ Bougie(Not Applicable) - Crow Knowles MD Familial anesthetic complications: none Was Beta Oli taken within 24 hours: N/A Was Clonidine taken within 24 hours: N/A Last intake: Intake Last Liquid Date 12/30/21 Last Liquid Time 18:00 Last Solid Date 12/29/21 Last Solid Time 18:00 Last Intake: 18:00 Social No alcohol and No tobacco Exam alert, oriented x 3, clear to auscultation bilaterally and regular rate & rhythm Airway Submandibular: within normal limits Cervical ROM: within normal limits Mallampati: Class I Dentition: full Pulmonary Asthma (seasonal) CV/HEM None reported None reported Hepatic None reported GI Gastroesophageal Reflux Disease Metabolic None reported Musc/skel Lower Back Pain and Osteoarthritis/DJD Neuropsych None reported Anesthetic Plan ASA status: 2 Anesthesia: MAC Risk of > 500 ml blood loss (7ml/kg in children): No Medications/Allergies Home Medications Medication Instructions Recorded Confirmed Last Taken Type fluticasone 500 mcg-salmeterol 50 1 inh inhalation BID #60 ea 07/13/20 12/27/21 Unknown Rx mcg/dose blistr powdr for inhalation (Advair Diskus) valacyclovir 1 gram tablet 2,000 mg PO DAILY PRN herpes #10 06/11/21 12/27/21 Unknown Rx (Valtrex) tabs diphenoxylate-atropine 2.5 1 tab PO BID PRN diarrhea #60 tabs 07/12/21 12/27/21 Unknown Rx mg-0.025 mg tablet ipratropium bromide 42 mcg (0.06 1 spray intranasal TID #15 mL 07/23/21 12/27/21 Unknown Rx %) nasal spray tizanidine 4 mg tablet 4 - 8 mg PO .at bedtime PRN muscle 09/11/21 12/27/21 Unknown Rx spasticity #60 tabs simvastatin 40 mg tablet 40 mg PO DAILY #90 tabs 10/09/21 12/27/21 Unknown Rx pantoprazole 40 mg tablet,delayed 40 mg PO DAILY #90 tabs 11/08/21 12/27/21 Unknown Rx release albuterol sulfate 90 mcg/actuation 1 inh inhalation QID PRN shortness 11/29/21 12/27/21 Unknown Rx aerosol inhaler of breath or wheezing #6.7 grams Allergies Allergy/AdvReac Type Severity Reaction Status Date / Time morphine Allergy ADR-Halluci Verified 12/05/21 10:06 nating Current Medications Generic Name Dose Route Start Last Admin Trade Name Freq PRN Reason Stop Dose Admin Sodium Chloride 1,000 mls @ 30 mls/hr 12/31/21 09:00 12/31/21 09:50 Sodium Chloride 0.9% IV 30 mls/hr .Q24H KEAGAN Administration PFSH Anesthesia Medical History Asthma Chronic pain in right shoulder Colitis Encounter for long-term use of opiate analgesic Encounter for narcotic contract discussion Neck pain Opioid contract exists Surgical History History of back surgery History of colonoscopy History of neck surgery History of penile implant History of vasectomy Family History Mother Neck pain Sister Neck pain Brother Neck pain Low back pain Social History Smoking and tobacco status: never smoked Second hand smoke exposure: No Alcohol intake: never History of recent travel: No Data Anesthesia Cardiac Studies: No Data to Display
[2021-12-31 11:07] VITALS: BP 96/59; PULSE 62; RESP 18; TEMP 36.1; O2SAT 93
[2021-12-31 11:15] VITALS: BP 115/74; PULSE 65; RESP 18; O2SAT 94
--- NOTE | 2021-12-31 14:49 | ANE.PACU2 ---
Inpatient post-anesthesia follow up: Airway intact: Yes Vital signs: Temperature 97.0 F Pulse Rate 65 Respiratory Rate 18 Blood Pressure 115/74 Pulse Oximetry 94 Oxygen Delivery Me thod Room Air Oxygen Flow Rate Fraction of Inspir ed Oxygen Hydration adequate: Yes Nausea and vomiting: No Pain level: 1 Mental status: Baseline
[2022-01-01 14:08] LABS: H. Pylori / CLO Test Negative
== END 2021-12-31 11:40 | disposition home or self-care (01) ==
PROVIDERS: PCP Registered Nurse; Visit Provider Internal Medicine
PROC: 0DJD8ZZ Inspection of Lower Intestinal Tract, Via Natural or Artificial Opening Endoscopic (ICD-10-PCS; CPT 45378; principal; 2021-12-31 11:00)
DX: Z12.11 Encounter for screening for malignant neoplasm of colon (principal); K29.50 Unspecified chronic gastritis without bleeding; K21.9 Gastro-esophageal reflux disease without esophagitis; K51.90 Ulcerative colitis, unspecified, without complications
CPT/HCPCS: 43239; 45380; 87077; 88305; J2704; J7030

== ENCOUNTER → 2022-01-22 10:58 | Outpatient (BNVA) | payer MEDICARE, MEDICAID, SELFPAY | PROVIDERS: PCP Registered Nurse; Visit Provider Orthopaedic Surgery | DX: M54.2 Cervicalgia (principal); M54.16 Radiculopathy, lumbar region; R20.2 Paresthesia of skin; Z98.1 Arthrodesis status | CPT/HCPCS: 99213 ==

== ENCOUNTER → 2022-03-20 10:07 | Outpatient (BNVA) | payer MEDICARE, MEDICAID, SELFPAY | PROVIDERS: PCP Registered Nurse; Visit Provider Specialist | DX: M54.16 Radiculopathy, lumbar region (principal); G37.9 Demyelinating disease of central nervous system, unspecified | CPT/HCPCS: 99214 ==

== ENCOUNTER → 2022-03-21 07:41 | Outpatient (BNVA) | payer MEDICARE, MEDICAID, SELFPAY | PROVIDERS: PCP Registered Nurse; Visit Provider Specialist | DX: G37.9 Demyelinating disease of central nervous system, unspecified (principal) | CPT/HCPCS: 62270; 82945; 84157; 86592; 87070; 87075; 87205; 87327; 89050; 99212 ==

== ENCOUNTER → 2022-04-16 10:40 | Outpatient (BNVA) | payer MEDICARE, MEDICAID, SELFPAY | PROVIDERS: PCP Registered Nurse; Visit Provider Specialist | DX: G37.9 Demyelinating disease of central nervous system, unspecified (principal); M47.9 Spondylosis, unspecified | CPT/HCPCS: 99214 ==

== ENCOUNTER → 2022-04-23 07:38 | Outpatient (BNVA) | payer MEDICARE, MEDICAID, SELFPAY | PROVIDERS: PCP Registered Nurse; Visit Provider Specialist | DX: G37.9 Demyelinating disease of central nervous system, unspecified (principal); G62.9 Polyneuropathy, unspecified; K51.30 Ulcerative (chronic) rectosigmoiditis without complications; G43.019 Migraine without aura, intractable, without status migrainosus; R10.2 Pelvic and perineal pain | CPT/HCPCS: 99214 ==

== ENCOUNTER 2022-05-06 08:29 | Outpatient (RCR) | payer MEDICARE, MEDICAID, SELFPAY ==
[2022-04-17 10:20] VITALS: BP 149/80; PULSE 75; RESP 18; TEMP 36.4; O2SAT 97
--- NOTE | 2022-04-17 10:35 | PC.NURSE ---
Pt to receive Solumedrol 1 gm IV x 5 days and then weekly x 4 weeks. Pt states he will be going out of town May [address] Avila notified. Orders received to give 2 doses of Solumedrol the week of prior to patient leaving on trip.
[2022-04-18 11:25] VITALS: BP 127/92; PULSE 82; RESP 18; TEMP 36.8; O2SAT 98
[2022-04-19 10:57] VITALS: BP 138/80; PULSE 82; RESP 18; TEMP 36.7; O2SAT 94
[2022-04-20 10:07] VITALS: BP 133/77; PULSE 77; RESP 18; TEMP 36.6; O2SAT 96
[2022-04-21 09:50] VITALS: BP 158/94; PULSE 71; RESP 16; TEMP 36.7; O2SAT 95
[2022-04-24 11:56] VITALS: BP 122/81; PULSE 73; RESP 18; TEMP 36.6; O2SAT 94
[2022-05-01 10:00] VITALS: BP 148/78; PULSE 81; RESP 18; TEMP 36.7; O2SAT 97
[2022-05-06 08:41] VITALS: BP 139/83; PULSE 79; RESP 18; TEMP 36.7; O2SAT 97
== END 2022-05-07 23:59 | disposition home or self-care (01) ==
LOC: GILAB 08:29
PROVIDERS: PCP Registered Nurse; Visit Provider Specialist
DX: G35 Multiple sclerosis (principal); M48.062 Spinal stenosis, lumbar region with neurogenic claudication; M54.16 Radiculopathy, lumbar region; M19.011 Primary osteoarthritis, right shoulder; M48.00 Spinal stenosis, site unspecified; M54.2 Cervicalgia; M79.601 Pain in right arm; M79.602 Pain in left arm; M79.604 Pain in right leg; M79.605 Pain in left leg
CPT/HCPCS: 80061; 96365; 99205; J2930; J7050

== ENCOUNTER 2022-05-10 08:35 | Outpatient (RCR) | payer MEDICARE, MEDICAID, SELFPAY ==
[2022-05-10 08:49] VITALS: BP 166/87; PULSE 73; RESP 18; TEMP 36.5; O2SAT 96
== END 2022-06-07 23:59 | disposition home or self-care (01) ==
LOC: GILAB 08:35
PROVIDERS: PCP Registered Nurse; Visit Provider Specialist
DX: M48.062 Spinal stenosis, lumbar region with neurogenic claudication (principal); M54.16 Radiculopathy, lumbar region; M19.011 Primary osteoarthritis, right shoulder; M48.00 Spinal stenosis, site unspecified; M54.2 Cervicalgia; G35 Multiple sclerosis; M79.601 Pain in right arm; M79.602 Pain in left arm; M79.604 Pain in right leg; M79.605 Pain in left leg
CPT/HCPCS: 96365; J2930; J7050

== ENCOUNTER → 2022-05-30 08:33 | Outpatient (BNVA) | payer MEDICARE, MEDICAID, SELFPAY | PROVIDERS: PCP Registered Nurse; Visit Provider Registered Nurse | DX: R35.0 Frequency of micturition (principal); G35 Multiple sclerosis; R53.83 Other fatigue; Z12.5 Encounter for screening for malignant neoplasm of prostate; K51.30 Ulcerative (chronic) rectosigmoiditis without complications | CPT/HCPCS: 80053; 81000; 82306; G0103 ==

== ENCOUNTER → 2022-06-17 10:41 | Outpatient (BNVA) | payer MEDICARE, MEDICAID, SELFPAY | PROVIDERS: PCP Registered Nurse; Visit Provider Anesthesiology Pain Medicine | DX: M48.062 Spinal stenosis, lumbar region with neurogenic claudication (principal); M54.16 Radiculopathy, lumbar region; M54.2 Cervicalgia; M19.011 Primary osteoarthritis, right shoulder; G35 Multiple sclerosis | CPT/HCPCS: 99213; 99214 ==

== ENCOUNTER 2022-06-27 12:22 | Outpatient (CLI) | payer MEDICARE, MEDICAID, SELFPAY ==
--- NOTE | 2022-06-27 13:45 | MR_ITS ---
WS: [email or web address] MRI HEAD WITH CONTRAST TECHNIQUE: Sagittal T1, T2 axial, T2 axial FLAIR, axial susceptibility weighted imaging, axial diffus ion weighted images, and coronal T2 images were obtained. Pre and post-T1 axial and post T1 coronal i mages. ADC and FSPGR images. CLINICAL INFORMATION: G35 - Multiple sclerosis COMPARISON: MRI December 28, 2021 FINDINGS: No evidence of restricted diffusion to suggest acute ischemia. Ventricular system and basilar cistern s are patent. Moderate patchy supratentorial periventricular white matter changes not significantly c hanged compared to December 28, 2021. Mild parenchymal volume loss. No hemosiderin on susceptibly weig hted images. Mild symmetric atrophy temporal lobes and hippocampal formations. No significant corpus callosal atrophy. Normal posterior fossa. Normal vascular flow voids skull base. No extra-axial fluid collections. No m ass or mass effect. Mild mucosal thickening in the ethmoid air cells and paranasal sinuses. Mastoid a ir cells well aerated. Normal posterior nasopharynx. Normal parapharyngeal fat. Normal optic chiasm a nd pituitary infundibulum. No abnormal gadolinium enhancement. Normal optic chiasm and pituitary infu ndibulum. No enhancing intracranial lesions to indicate active demyelinating disease. Normal visualiz ed dural venous sinuses. MR/MR head wo/w con [id number] IMPRESSION: 1. No evidence of restricted diffusion to suggest acute ischemia. 2. Moderate patchy supratentorial white matter changes stable compared to Octo 2021. This is nonspecific in a patient this age but can be seen with hy pertension, diabetes, small vessel disease, and demyelinating disease. 3. Mild parenchymal volume loss. 4. No abnormal intracranial enhancement. 5. No hemosiderin on susceptibly weighted images.
[2022-06-27] MEDS: gadobenate dimeglumine 20 mL vial IV (14:03)
== END 2022-06-27 12:23 | disposition home or self-care (01) ==
LOC: RAD 12:24
PROVIDERS: PCP Registered Nurse; Visit Provider Specialist
DX: G35 Multiple sclerosis (principal)
CPT/HCPCS: 70553; A9577

== ENCOUNTER → 2022-08-28 10:07 | Outpatient (BNVA) | payer MEDICARE, MEDICAID, SELFPAY | PROVIDERS: PCP Registered Nurse; Visit Provider Registered Nurse | DX: G35 Multiple sclerosis (principal); K51.30 Ulcerative (chronic) rectosigmoiditis without complications | CPT/HCPCS: 82306; 82607 ==

== ENCOUNTER → 2022-09-12 07:31 | Outpatient (BNVA) | payer MEDICARE, MEDICAID, SELFPAY | PROVIDERS: PCP Registered Nurse; Visit Provider Psychiatry & Neurology Neurology | DX: G58.8 Other specified mononeuropathies (principal); G43.019 Migraine without aura, intractable, without status migrainosus; G37.9 Demyelinating disease of central nervous system, unspecified; Z98.890 Other specified postprocedural states | CPT/HCPCS: 36415; 82525; 83090; 83735; 83921; 84155; 84165; 84439; 84443; 84481; 84591; 85651; 86140; 86160; 86162; 86235; 86255; 86334; 86376; 86431; 86617; 86780; 99204 ==

== ENCOUNTER 2022-09-24 08:56 | Outpatient (CLI) | payer MEDICARE, MEDICAID, SELFPAY ==
--- NOTE | 2022-09-24 10:15 | FL_ITS ---
WS: [email or web address] LUMBAR PUNCTURE CLINICAL INFORMATION: G35 - Multiple sclerosis COMPARISON: MRI December 28, 2021 TECHNIQUE: Informed consent: The procedure and its potential risk and complications were discussed with the naomi ent. Verbal and written consent was obtained. Timeout: A timeout was performed to confirm correct patient, procedure, and site. Patient was prepped and draped in the usual sterile fashion. Lidocaine 1% was used for local anesthes ia. Utilizing fluoroscopic guidance, a 3.5 inch 22-gauge spinal needle was advanced into the subarach noid space at L4-L5 via LEFT oblique sublaminar approach. Free flow of clear CSF was obtained. 10 cc of CSF was collected and sent the lab for further analysis. FLUOROSCOPIC TIME: 1min [id number] # of spot films: 2 FL/FL guided lumbarpunc dx* [id number] IMPRESSION: 1. Fluoroscopically guided lumbar puncture. No immediate complications. 2. Fluid sent for requested diagnostic tests.
[2022-09-24 13:29] LABS: CSF Mononuclear # 0.001 10^3/uL (50-90); Mononuclear WBC CSF % 50 % (50-90); Polynuclear Cells ,CSF # 0.001 10^3/uL (0-10); Polynuclear WBC CSF % 50 % (0-10); Red Blood Cell CSF 0 10^3/uL (0-0); White Blood Cell CSF 2 /uL (0-5)
[2022-09-24 13:43] LABS: Appearance CSF CLEAR (CLEAR); Color CSF COLORLESS (COLORLESS)
[2022-09-24 13:50] LABS: Glucose CSF 55 mg/dL (40-70); Total Protein CSF 62 mg/dL (15-45)
[2022-09-28 13:14] LABS: CMV DNA By PCR NOT DETECTED; CMV DNA, QN PCR NOT DETECTED Log IU/mL; SOURCE CEREBROSPINAL FLUID
[2022-09-29 19:25] LABS: HSV 1 DNA NOT DETECTED; HSV 2 DNA NOT DETECTED; HSV Source CEREBROSPINAL FLUID
[2022-10-01 01:34] LABS: VDRL on CSF NON-REACTIVE
[2022-10-01 13:19] LABS: Immunoglobulin G, CSF 3.3 mg/dL (0.8-7.7)
[2022-10-03 16:18] LABS: Oligoclonal Bands IGG, CSF ABSENT (ABSENT)
[2022-10-03 22:08] LABS: West Nile Virus AB (IGG) <1.30 index; West Nile Virus AB (IGM) <0.90 index
[2022-10-07 16:13] LABS: Miscellaneous Test SEE COMMENTS
[2022-10-07 16:22] LABS: Miscellaneous Test SEE COMMENTS
[2022-10-07 16:23] LABS: Miscellaneous Test SEE COMMENTS
[2022-10-07 16:25] LABS: Miscellaneous Test SEE COMMENTS
== END 2022-09-24 08:57 | disposition home or self-care (01) ==
PROVIDERS: PCP Registered Nurse; Visit Provider Psychiatry & Neurology Neurology
DX: G35 Multiple sclerosis (principal)
CPT/HCPCS: 62328; 80503; 82040; 82042; 82164; 82784; 82945; 83916; 84157; 86592; 86658; 86777; 86778; 86788; 86789; 87015; 87070; 87075; 87116; 87205; 87206; 87327; 87496; 87530; 87536; 87799; 87801; 88112; 88305; 89050

== ENCOUNTER → 2022-10-02 09:06 | Outpatient (BNVA) | payer MEDICARE, MEDICAID, SELFPAY | PROVIDERS: PCP Registered Nurse; Visit Provider Anesthesiology Pain Medicine | DX: M48.062 Spinal stenosis, lumbar region with neurogenic claudication (principal); M19.011 Primary osteoarthritis, right shoulder; M54.16 Radiculopathy, lumbar region; G35 Multiple sclerosis; M48.02 Spinal stenosis, cervical region | CPT/HCPCS: 99214 ==

== ENCOUNTER → 2022-10-29 12:48 | Outpatient (BNVA) | payer MEDICARE, MEDICAID, SELFPAY | PROVIDERS: PCP Registered Nurse; Visit Provider Dermatology | DX: D17.22 Benign lipomatous neoplasm of skin and subcutaneous tissue of left arm (principal); D29.4 Benign neoplasm of scrotum; L82.1 Other seborrheic keratosis; L81.4 Other melanin hyperpigmentation; L57.8 Other skin changes due to chronic exposure to nonionizing radiation | CPT/HCPCS: 17000; 17003; 99213 ==

== ENCOUNTER → 2022-12-03 15:08 | Outpatient (BNVA) | payer MEDICARE, MEDICAID, SELFPAY | PROVIDERS: PCP Registered Nurse; Visit Provider Psychiatry & Neurology Neurology | DX: G58.8 Other specified mononeuropathies (principal); G43.019 Migraine without aura, intractable, without status migrainosus; M54.16 Radiculopathy, lumbar region; G62.9 Polyneuropathy, unspecified; G37.9 Demyelinating disease of central nervous system, unspecified | CPT/HCPCS: 99212 ==

== ENCOUNTER → 2023-03-17 13:55 | Outpatient (BNVA) | payer MEDICARE, MEDICAID, SELFPAY | PROVIDERS: PCP Registered Nurse; Visit Provider Psychiatry & Neurology Neurology | DX: G58.8 Other specified mononeuropathies (principal); G62.9 Polyneuropathy, unspecified; M48.062 Spinal stenosis, lumbar region with neurogenic claudication; R20.2 Paresthesia of skin | CPT/HCPCS: 99212 ==

== ENCOUNTER → 2023-04-03 10:00 | Outpatient (BNVA) | payer MEDICARE, MEDICAID, SELFPAY | PROVIDERS: PCP Registered Nurse; Visit Provider Anesthesiology Pain Medicine | DX: M16.12 Unilateral primary osteoarthritis, left hip (principal); M48.062 Spinal stenosis, lumbar region with neurogenic claudication; M19.011 Primary osteoarthritis, right shoulder; M54.16 Radiculopathy, lumbar region; M54.2 Cervicalgia; G35 Multiple sclerosis | CPT/HCPCS: 73521; 99214 ==

== ENCOUNTER → 2023-04-14 13:15 | Outpatient (BNVA) | payer MEDICARE, MEDICAID, SELFPAY | PROVIDERS: PCP Registered Nurse; Visit Provider Anesthesiology Pain Medicine | DX: M54.16 Radiculopathy, lumbar region (principal); M48.062 Spinal stenosis, lumbar region with neurogenic claudication | CPT/HCPCS: 64483; 64484; J1100; J3490 ==

== ENCOUNTER → 2023-05-12 08:39 | Outpatient (BNVA) | payer MEDICARE, SELFPAY | PROVIDERS: PCP Registered Nurse; Visit Provider Anesthesiology Pain Medicine | DX: M48.062 Spinal stenosis, lumbar region with neurogenic claudication (principal); M19.011 Primary osteoarthritis, right shoulder; M54.16 Radiculopathy, lumbar region; G35 Multiple sclerosis; M48.07 Spinal stenosis, lumbosacral region; M48.02 Spinal stenosis, cervical region | CPT/HCPCS: 99214 ==

== ENCOUNTER → 2023-07-01 13:50 | Outpatient (BNVA) | payer MEDICARE, SELFPAY | PROVIDERS: PCP Registered Nurse; Visit Provider Registered Nurse | DX: R35.0 Frequency of micturition (principal) | CPT/HCPCS: 81000 ==

== ENCOUNTER → 2023-08-05 11:01 | Outpatient (BNVA) | payer MEDICARE, SELFPAY | PROVIDERS: PCP Registered Nurse; Visit Provider Registered Nurse Neonatal Intensive Care | DX: R30.0 Dysuria (principal); R39.9 Unspecified symptoms and signs involving the genitourinary system | CPT/HCPCS: 81000; 87086 ==

== ENCOUNTER → 2023-09-04 08:37 | Outpatient (BNVA) | payer MEDICARE, SELFPAY | PROVIDERS: PCP Registered Nurse; Visit Provider Registered Nurse | DX: Z79.891 Long term (current) use of opiate analgesic (principal); Z00.00 Encounter for general adult medical examination without abnormal findings; Z12.5 Encounter for screening for malignant neoplasm of prostate; E78.5 Hyperlipidemia, unspecified; Z71.85 Encounter for immunization safety counseling | CPT/HCPCS: 80053; 80061; 83036; 85025; G0103 ==

== ENCOUNTER → 2023-11-12 08:48 | Outpatient (BNVA) | payer MEDICARE, SELFPAY | PROVIDERS: PCP Registered Nurse; Visit Provider Nurse Practitioner Family | DX: L57.0 Actinic keratosis (principal); D17.22 Benign lipomatous neoplasm of skin and subcutaneous tissue of left arm; D29.4 Benign neoplasm of scrotum; L82.1 Other seborrheic keratosis; L81.4 Other melanin hyperpigmentation; L57.8 Other skin changes due to chronic exposure to nonionizing radiation | CPT/HCPCS: 17000; 99213 ==

== ENCOUNTER → 2024-03-15 12:45 | Outpatient (BNVA) | payer MEDICARE, MEDICAID, SELFPAY | PROVIDERS: PCP Registered Nurse; Visit Provider Psychiatry & Neurology Neurology | DX: G58.8 Other specified mononeuropathies (principal); G62.9 Polyneuropathy, unspecified; M48.062 Spinal stenosis, lumbar region with neurogenic claudication; R20.2 Paresthesia of skin | CPT/HCPCS: G0463 ==

== ENCOUNTER 2024-05-11 06:41 | Outpatient (RCR) | payer MEDICARE, MEDICAID, SELFPAY | END 2024-06-07 23:59 | disposition home or self-care (01) | LOC: SPT 06:41 | PROVIDERS: PCP Registered Nurse; Visit Provider Registered Nurse | DX: M75.41 Impingement syndrome of right shoulder (principal) | CPT/HCPCS: 97110; 97161 ==

== ENCOUNTER → 2024-06-07 07:40 | Outpatient (BNVA) | payer MEDICARE, MEDICAID, SELFPAY | PROVIDERS: PCP Registered Nurse; Visit Provider Nurse Practitioner Family | DX: D17.22 Benign lipomatous neoplasm of skin and subcutaneous tissue of left arm (principal); D29.4 Benign neoplasm of scrotum; L57.8 Other skin changes due to chronic exposure to nonionizing radiation; X32.XXXA Exposure to sunlight, initial encounter; L81.4 Other melanin hyperpigmentation; L82.1 Other seborrheic keratosis; L57.0 Actinic keratosis | CPT/HCPCS: 17000; 99213 ==

== ENCOUNTER 2024-06-08 05:41 | Outpatient (RCR) | payer MEDICARE, SELFPAY | END 2024-06-22 08:38 | disposition home or self-care (01) | LOC: SPT 05:41 | PROVIDERS: Visit Provider Registered Nurse | DX: M75.41 Impingement syndrome of right shoulder (principal) | CPT/HCPCS: 97110 ==

== ENCOUNTER 2024-07-26 06:59 | Outpatient (CLI) | payer MEDICARE, MEDICAID, SELFPAY ==
--- NOTE | 2024-07-26 07:15 | MR_ITS ---
WS: [email or web address] MRI RIGHT SHOULDER HISTORY: M75.41 - Impingement syndrome of right shoulder COMPARISON: 07/27/2020 TECHNIQUE: Multiplanar sequences of the shoulder joint are submitted. Moderate to severe osteoarthritic changes at the AC joint. AC joint is narrowed. Mild synovial thickening. Osteophyte extends inferiorly upon the supraspinatus muscle and tendon. Less edema and synovial thickening as compared to 2020. Mild downsloping of the acromion with a small enthesopathy. Mild subacromial impingement. Biceps tendon in good position. No os acromion. Humeral head is slightly high riding. Small osteophyte in the lesser tuberosity. Moderate narrowing the glenohumeral joint. Mild osteophytic ridging around the humeral head. Progression of supraspinatus atrophy since the prior study. No edema within the rotator cuff muscles. There is thickening of the distal subscapularis tendon but there is also fluid extending along the tendon suggesting an interstitial tear. Defect in the distal anterior supraspinatus tendon suggesting a full tear. This is new since the prior examination. Additional well-circumscribed low- attenuation 8 mm focus in the distal supraspinatus tendon may be related to a loose body or calcific tendinitis. This may also be part of a retracted tendon. Infraspinatus tendon appears intact. Increased fluid in the subscapularis recess. Increased fluid extending into the rotator cuff interval. No labral tear. Coracohumeral ligament appears thin but no definite tear. MR/MR shoulder RT wo con* [id number] IMPRESSION: 1. New full-thickness distal supraspinatus tendon tear. Minimal retraction of the tendon. 2. Mild progression of supraspinatus atrophy with no edema. 3. Subscapularis tendinopathy. There is an additional interstitial tear identi fied within the distal subscapularis tendon which is also new. 4. Moderate to severe osteoarthritis involving the AC joint. 5. Mild subacromial impingement. 6. Moderate glenohumeral joint arthropathy. Small cyst in the lesser tuberosit y. 7. Possible intra-articular body or calcific tendinitis associated with the di stal supraspinatus tendon measures 8 mm. Potentially also this could be retract ed tendon.
== END 2024-07-26 07:00 | disposition home or self-care (01) ==
PROVIDERS: PCP Registered Nurse; Visit Provider Registered Nurse
DX: M75.41 Impingement syndrome of right shoulder (principal); M75.101 Unspecified rotator cuff tear or rupture of right shoulder, not specified as traumatic; M62.511 Muscle wasting and atrophy, not elsewhere classified, right shoulder; S46.811A Strain of other muscles, fascia and tendons at shoulder and upper arm level, right arm, initial encounter; X58.XXXA Exposure to other specified factors, initial encounter; M19.011 Primary osteoarthritis, right shoulder; M71.311 Other bursal cyst, right shoulder; M67.813 Other specified disorders of tendon, right shoulder; R93.7 Abnormal findings on diagnostic imaging of other parts of musculoskeletal system; M25.711 Osteophyte, right shoulder; M24.211 Disorder of ligament, right shoulder
CPT/HCPCS: 73221